=== PATIENT | male | born 1995 | race African-American/Black ===

== ENCOUNTER 2017-07-28 09:36 | Emergency (ER) | payer SELFPAY ==
[~2017-07-28] VITALS: Ht 177.8 cm; Wt 65.0 kg
[2017-07-28 09:39] VITALS: BP 129/67; PULSE 79; RESP 16; TEMP 99.1; O2SAT 100
[2017-07-28] MEDS ORDERED: PENICILLIN (09:47)
--- NOTE | 2017-07-28 09:56 | PD ---
HPI Chief Complaint: ENT Complaint Time Seen by Provider: 09:42 Travel History International Travel<30 days: No Contact w/Intl Traveler<30days: No Traveled to known affect area: No History of Present Illness HPI 22 year-old male presents to the emergency room for evaluation of sore throat for the past 2 weeks. Patient went to [facility] 1 week ago for his symptoms and was diagnosed with strep throat and prescribed penicillin. States he has been taking them every few hours and still has a few days left. He was feeling better until this morning when he woke up and felt like his throat was swelling again. States symptoms come and go. He has also been drinking warm tea and gargling with salt water. No associated fever, chills, nausea, vomiting. Denies concern for STD. He has not taken anything else for symptoms. History Social History Alcohol Use: Yes Tobacco Use: Yes Allergies-Medications (Allergen,Severity, Reaction): Coded Allergies: No Known Allergies (Unverified , 07/28/17) Reported Meds & Prescriptions Reported Meds & Active Scripts Active Reported [Penicillin ] Unknown Dose Review of Systems Except as stated in HPI: all other systems reviewed are Neg Physical Exam Narrative GENERAL: Well-nourished, well-developed male in no acute distress. Afebrile. Ambulatory. SKIN: Focused skin assessment warm/dry. HEAD: Normocephalic. EYES: No scleral icterus. No injection or drainage. NECK: Supple, trachea midline. No JVD or lymphadenopathy. ENT: Mucosa pink and moist. Minimal erythema without edema or exudates. No uvular edema. No uvular, palatal, or tonsillar deviation. Airway patent. Nasal turbinates appear normal without nasal blood, purulent drainage or septal hematoma. CARDIOVASCULAR: Regular rate and rhythm without murmurs, gallops, or rubs. RESPIRATORY: Breath sounds equal bilaterally. No accessory muscle use. No crackles, rales, wheezes, or rhonchi. Data Data Last Documented VS Vital Signs Date Time Temp Pulse Resp B/P (MAP) Pulse Ox O2 Delivery O2 Flow Rate FiO2 07/28/17 09:39 99.1 79 16 129/67 (87) 100 MDM Medical Screen Exam Complete: Yes Emergency Medical Condition: No Differential Diagnosis Sore throat Narrative Course 22-year-old male presents to the emergency room for recheck of sore throat. He was seen 1 week ago at [facility] and prescribed penicillin for strep throat. States he has been taking medication and symptoms were improving but he woke up this morning and felt like his throat was swollen again. Physical exam is reassuring. Throat is very mildly erythematous without edema or exudates. No peritonsillar abscess. No fevers. No increased work of breathing. Lung sounds clear and equal bilaterally. Patient is already on penicillin for possible strep throat. He was told to take Tylenol Motrin for pain. Told to try omeprazole symptoms persist. Told to follow-up with a primary care physician or return for worsening symptoms. There are no urgent or emergent medical conditions at this time. A medical screening exam was performed: At the time of evaluation the presenting medical condition was determined not to be of an emergent nature. The patient was given the option of receiving additional care, but declined. Patient was given options for additional community resources from which to obtain care. The Patient Has Been advised to seek medical attention for their presenting complaint. The patient has been advised to return to the ER at any time if an emergent condition develops. Primary Impression: Encounter for medical screening examination Disposition: 01 DISCHARGE HOME Condition: Stable Merly Grimaldo Jul 28, 2017 09:56
== END 2017-07-28 10:09 | disposition left against medical advice (07) ==
LOC: NEPK 09:36
DX: J02.9 Acute pharyngitis, unspecified (principal); Z88.0 Allergy status to penicillin; Z72.0 Tobacco use
CPT/HCPCS: 99281